=== PATIENT | female | born 1975 | race Caucasian/White ===

== ENCOUNTER → 2020-02-03 | Outpatient (CLI) | payer OTHER | LOC: SJCVCIMAG 09:25 | DX: R06.00 Dyspnea, unspecified (principal); R07.89 Other chest pain; F17.210 Nicotine dependence, cigarettes, uncomplicated ==

== ENCOUNTER → 2020-03-20 | Outpatient (CLI) | payer OTHER ==
[~2020-03-20] VITALS: Ht 162.6 cm; Wt 72.7 kg
[~2020-03-20] MED LIST: ALLEGRA ALLERG180 MG PO; ALTAVERA1 EACH PO; ASA81BEC PO; CALCIUM500 MG PO; CELEXA 20 MG TA20 MG PO; FLONASE 0.05%50 MCG NARES; PROBIOTIC1 EAC7 PO; TOPAMAX25 M1 PO; UNICOMPLEX M TA1 TA1 PO
[2020-03-20 07:15] VITALS: BP 133/80
--- NOTE | 2020-03-20 08:56 | CATHLAB ---
[facility] [place] [address] INVASIVE PROCEDURE REPORT Name: SARA YU Room #: REG FER [place].#: [id number] Admission: 03/20/20 Attend Phys: Brandon Scott MD, Discharge: Date of : 73 Report #: [id number] THIS REPORT FOR: cc: Santiago Sylvester James L. DO Lundgren, Craig H. MD [facility] ~ APPROVED REPORT Study performed: 03/20/2020 07:45:59 Patient Details Patient Status: Out-Patient Room #: The patient is a 44 year-old female Event Personnel Brandon Scott Colorist Photography, Aruna Oliva RN RN, Leatha Romo RTR Aarti Oliveira Alison RT(R)() Monitor, Mejia Segovia RTR Monitor Procedures Performed Art Access - R femoral artery* Left Heart Cath w/or w/o Coronaries [id number] Initial Mod Sed Same Phys/QHP Gr5y 198744 16837 Mod Sed Same Phys/QHP Ea [id number] Hemostasis w/ Mynx Indication Chest pain Procedure Narrative The patient was brought electively to the Cardiac Catheterization Laboratory and was prepped and draped in a sterile manner. The Right Groin^ was infiltrated with 1% Lidocaine subcutaneous anesthesia. A PINNACLE 6FR Sheath #[id number] sheath was inserted into the RFA 6F^. Coronary angiography was performed using coronary diagnostic catheters. The right coronary system was accessed and visualized with a JR4 catheter. The left coronary system was accessed and visualized with a JL 3.5 catheter. The left ventricle was accessed and visualized with a PIGTAIL catheter. Left ventriculogram was performed in 30 degree projection. Closure device was deployed with a 6 Fr Mynx. The patient tolerated the procedure well and there were no complications associated with the procedure. There was no hematoma. Intraoperative Conscious Sedation Sedation start time: 757 Case end Time: 824 [facility] [employer] [place] [address] INVASIVE PROCEDURE REPORT Name: YUSARA Room #: REG [facility]#: [id number] Admission: 03/20/20 Attend Phys: Brandon Scott, Discharge: Date of : 73 Report #: [id number] Fentanyl 50 mcg Versed 1 mg Fluoro Time: 4.60 minutes Dose: DAP 3238.00 cGycm2 632 mGy Contrast Type and Amount: Omnipaque 85 ml Coronary Angiography The patient's coronary anatomy is right dominant. Diagnostic Cath Left Main Normal left main LAD Normal left anterior descending Diagonal 1 Normal, large, single diagonal branch Circumflex Large but nondominant circumflex comprised of 2 marginal branches OM1 Large OM1, angiographically normal OM2 Moderate size OM 2, angiographically normal Right Coronary Normal, dominant right coronary R PDA Normal posterior descending RPLV Normal posterior lateral branch Left Ventriculography The left ventricle is normal in size with normal contractility. The left ventricular ejection fraction is estimated to be 60-65%. Left ventricular wall motion abnormalities are not present. There is no mitral insufficiency. Hemodynamics The aortic pressure is 125/68 mmHg with a mean of 96 mmHg. The left ventricular pressure is 147/-6 mmHg with a mean of mmHg. The left ventricular end diastolic pressure is 11 mmHg. Conclusion 1. Normal global and regional left ventricular systolic function. Ejection fraction 65% 2. Normal left main 3. Normal coronary vasculature. Right coronary dominant circulation. <ELECTRONICALLY SIGNED> By: Brandon Scott MD, FACC 03/20/20854 4 4 Brandon Scott MD, FACC /INF
== END | disposition home or self-care (01) ==
LOC: CATH 03-16 07:17
PROVIDERS: ATTEND Internal Medicine
DX: R07.9 Chest pain, unspecified (principal); R53.83 Other fatigue; G43.909 Migraine, unspecified, not intractable, without status migrainosus; F41.9 Anxiety disorder, unspecified; F17.210 Nicotine dependence, cigarettes, uncomplicated; Z98.890 Other specified postprocedural states; Z79.899 Other long term (current) drug therapy; Z79.82 Long term (current) use of aspirin; Z82.49 Family history of ischemic heart disease and other diseases of the circulatory system